=== PATIENT | female | born 1995 | race Caucasian/White ===

== ENCOUNTER 2017-02-18 02:33 | Emergency (ER) | payer OTHER ==
[~2017-02-18] VITALS: Ht 170.2 cm; Wt 70.5 kg
[~2017-02-18 02:33] MED LIST: ALLEGRA ALLERG180 MG PO; CELEBREX 200MG200 MG PO; FLONASEALLERGY NS; FLORINEF ACETA0.1 MG PO; MAGIC MOUTH PO; MAXALT10 MG; PHENERGAN 25 TA25 MG PO; PROBIOTIC-MAJOR PO; PROVENTIL0.09 MG/A1 IH; ZOFRAN 4MG T4 MG/TAB PO
[2017-02-18 02:35] VITALS: BP 143/70; TEMP 97.8
[2017-02-18] MEDS ORDERED: ULTRAM 50MG TAB50 MG PO (02:53)
[2017-02-18] MEDS ORDERED: ZOFRAN8 MG PO (02:53)
[2017-02-18 03:15] VITALS: PULSE 88
== END 2017-02-18 03:15 | disposition home or self-care (01) ==
LOC: COL.ER 02:33
DX: S09.90XA Unspecified injury of head, initial encounter (principal); W51.XXXA Accidental striking against or bumped into by another person, initial encounter; Y92.89 Other specified places as the place of occurrence of the external cause; G43.909 Migraine, unspecified, not intractable, without status migrainosus
CPT/HCPCS: J1170

== ENCOUNTER → 2017-02-19 | Outpatient (CLI) | payer OTHER ==
[~2017-02-19] MED LIST changes: +ULTRAM 50MG TAB50 MG PO; +ZOFRAN8 MG PO
== END ==
LOC: COL.RAD 12:24
DX: S06.0X0A Concussion without loss of consciousness, initial encounter (principal); R11.0 Nausea

== ENCOUNTER → 2017-02-25 | Outpatient (CLI) | payer OTHER | LOC: COL.RAD 07:18 | DX: S06.0X0A Concussion without loss of consciousness, initial encounter (principal) ==